=== PATIENT | male | born 1960 | race American Indian/Alaskan Native ===

== ENCOUNTER 2018-01-26 07:09 | Day surgery (SDC) | payer MEDICAID ==
[~2018-01-26 07:09] MED LIST: ANCEF/STERILE WATER 2 GM/20 ML IV NR
[2018-01-26] MEDS ORDERED: REGLAN IV PRN (08:40)
[2018-01-26] MEDS ORDERED: DEMEROL IV PRN (08:40)
[2018-01-26] MEDS ORDERED: PERCOCET 5/325 PO PRN (08:40)
[2018-01-26] MEDS ORDERED: DILAUDID IV PRN (08:40)
[2018-01-26] MEDS ORDERED: TORADOL IV PRN (08:40)
[2018-01-26] MEDS ORDERED: ZOFRAN IV PRN (08:40)
--- NOTE | 2018-01-26 08:40 | Anesthesia Day of Surgery ---
Anesthesia Day of Surgery - Day of Surgery Patient Examined: Yes Patient H&P Reviewed: Yes Patient is NPO: Yes
--- NOTE | 2018-01-26 08:40 | Anesthesia Consultation ---
Anesthesia Consult and Med Hx Date of service: 01/26/18 - Airway Anesthetic Teeth Evaluation: Poor (the patient's mouth is wired shut) ROM Head & Neck: Adequate Mental/Hyoid Distance: Adequate Mallampati Class: Class IV (unable to assess MP status due to mouth being wired shut) Intubation Access Assessment: Difficult (due to mouth hardware) - Pulmonary Exam CTA: Yes - Cardiac Exam Cardiac Exam: RRR (low heart rate) - Pre-Operative Health Status ASA Pre-Surgery Classification: ASA2 Proposed Anesthetic Plan: General, TIVA - Pulmonary Hx Smoking: Yes (NOT SMOKED X 6 WEEKS BECAUSE JAWS WIRED) Hx Sleep Apnea: No (NOREEN PRE SCREEN LOW RISK.) - Cardiovascular System Hx Hypertension: No - Central Nervous System Hx Back Pain: Yes (BACK AND NECK PAIN) - Other Systems Hx Cancer: No
[2018-01-26] MEDS ORDERED: SUBLIMAZE ONE (08:44)
[2018-01-26] MEDS ORDERED: XYLOCAINE CARDIAC IV ONE (08:44)
[2018-01-26] MEDS ORDERED: DIPRIVAN 10 MG/ML IV ONE (08:45)
[2018-01-26] MEDS ORDERED: VERSED ONE (08:51)
[2018-01-26] MEDS ORDERED: LACTATED RINGERS 1,000 ML IV SCH (09:00)
[2018-01-26] MEDS ORDERED: NACL 0.9% IR ONE (09:06)
--- NOTE | 2018-01-26 09:28 | Operative Report ---
PREOPERATIVE DIAGNOSIS: Mandibular fracture. POSTOPERATIVE DIAGNOSIS: Mandibular fracture. PROCEDURE: Removal of hardware, deep x 4. SURGEON: Krishna Kelly MD DESCRIPTION OF PROCEDURE: The patient was brought into the operating room, placed on the table in supine position. Following administration of IV sedation, the patient was prepped with Betadine solution and draped in the usual sterile manner. A [place] elevator was used to incise mucosa overlying the screws followed by blunt dissection to expose them. Wires were cut and removed followed by removal of the screws x 4. The patient tolerated the procedure well and returned to recovery room in stable condition. JOB# [id number] FTW/NTS
[2018-01-26 09:53] VITALS: BP 153/71
--- NOTE | 2018-01-27 05:05 | Post Anesthesia Evaluation ---
- Post Anesthesia Evaluation Patient Participated: Yes Airway Patent: Yes Stable Respiratory Function: Yes Nausea/Vomiting: No Temp > 96.8F: Yes Pain Manageable: Yes Adequeate Hydration: Yes Anesthesia Complications: No Block Receding Appropriately: Not Applicable Patient on Ventilator: No
== END 2018-01-26 10:19 | disposition home or self-care (01) ==
LOC: OR 07:09
PROVIDERS: ATTEND Plastic Surgery
DX: S02.609A Fracture of mandible, unspecified, initial encounter for closed fracture (principal); Z87.891 Personal history of nicotine dependence; X58.XXXA Exposure to other specified factors, initial encounter; Y93.89 Activity, other specified; Y92.89 Other specified places as the place of occurrence of the external cause; Y99.8 Other external cause status
CPT/HCPCS: 20680; 88300; J0690; J1885; J2001; J2250; J2704; J3010; J7120; 88302